=== PATIENT | female | born 1950 | race African-American/Black ===

== ENCOUNTER 2018-03-23 08:44 | Day surgery (SDC) | payer MEDICARE ==
--- OUTSIDE RECORDS SUMMARY | 2018-03-23 08:50 | XMS REPORT ---
:1950 Author Organization [employer] Care Team Providers Name Role Phone Kirk, Na Provider Role Unavailable Allergies, Adverse Reactions, Alerts Substance Reaction Event Type Amoxicillin Info Not Available Drug Allergy Problems Problem Type Condition Code Onset Dates Condition Status Problem Depression with anxiety F41.8 Active Problem Aortic valve stenosis I35.0 Active Problem Allergic rhinitis, seasonal J30.2 Active Assessment Depression with anxiety F41.8 Active Problem COPD (chronic obstructive pulmonary J44.9 Active disease) Problem Anxiety F41.9 Active Problem Hyperlipidemia E78.5 Active Problem GERD (gastroesophageal reflux K21.9 Active disease) Problem Constipation K59.00 Active Problem Benign essential HTN I10 Active Problem Vitamin D deficiency E55.9 Active Medications Medication Code Code Instructions Start End Status Dosage System Date Date Incruse Ellipta [facility] 88528649672 62.5 MCG/INH Active 1 puff Inhalation Once a day Alendronate Sodium [facility] 87420382696 35 MG Orally Active 1 tablet ProAir HFA [facility] 96333076129 108 (90 Base) Active 2 puffs as MCG/ACT needed Inhalation every 6 hrs Vitamin D3 [facility] 13568134381 1000 UNIT Active 1 tablet Orally Once a day Cyclobenzaprine [facility] 58803285716 10 MG Orally Active 1 tablet HCl Three times a as needed day Alprazolam ND 72017279401 0.5 MG Orally Active 1 tablet Twice a day ProAir RespiClick [facility] 09324969214 108 (90 Base) Active 2 puffs as MCG/ACT needed Inhalation every 4 hrs Pepcid [facility] 97726479061 20 MG Orally Active 1 tablet Once a day at bedtime Aspir-81 [facility] 39581424059 81 MG Orally Active 1 tablet Once a day Lipitor [facility] 65456197081 10 MG Orally Active 1 tablet Once a day Xanax ND 45921061251 0.5 MG Orally Active 1 tablet Twice a day Tessalon Perles [facility] 85504477470 100 MG Orally Active 1 capsule Three times a as needed day Coreg [facility] 69661675132 6.25 MG Orally February 27, Active as Twice a day 2018 directed Losartan Potassium [facility] 06844414218 100 MG Orally Active 1 tablet Once a day Amlodipine [facility] 98166136043 10 MG Orally Active 1 tablet Besylate Once a day Results No Known Results Summary Purpose eClinicalWorks Submission
--- OUTSIDE RECORDS SUMMARY | 2018-03-23 08:50 | XMS REPORT ---
:1950 Author Organization [employer] Care Team Providers Name Role Phone Kirk, Na Provider Role Unavailable Allergies, Adverse Reactions, Alerts Substance Reaction Event Type Amoxicillin Info Not Available Drug Allergy Problems Problem Type Condition Code Onset Dates Condition Status Problem Depression with anxiety F41.8 Active Problem Aortic valve stenosis I35.0 Active Problem Allergic rhinitis, seasonal J30.2 Active Problem COPD (chronic obstructive pulmonary J44.9 Active disease) Problem Anxiety F41.9 Active Problem Hyperlipidemia E78.5 Active Problem GERD (gastroesophageal reflux K21.9 Active disease) Problem Constipation K59.00 Active Problem Benign essential HTN I10 Active Problem Vitamin D deficiency E55.9 Active Assessment Benign essential HTN I10 Active Assessment Depression with anxiety F41.8 Active Assessment Cough R05 Active Assessment Hyperlipidemia E78.5 Active Assessment Acute non-recurrent sinusitis, J01.90 Active unspecified location Medications Medication Code Code Instructions Start End Status Dosage System Date Date Azithromycin [facility] 06660682048 250 MG Orally December Active 2 tablets Once a day 13, 18, on the 2017 2017 first day, then 1 tablet daily for 4 days Vitamin D3 [facility] 87868859474 1000 UNIT Active 1 tablet Orally Once a day Tessalon Perles [facility] 12211946620 100 MG Orally Active 1 capsule Three times a as needed day Amlodipine [facility] 12253381546 10 MG Orally Active 1 tablet Besylate Once a day Incruse Ellipta [facility] 60838173299 62.5 MCG/INH Active 1 puff Inhalation Once a day Aspir-81 [facility] 27038212246 81 MG Orally Active 1 tablet Once a day ProAir HFA [facility] 97521933706 108 (90 Base) Active 2 puffs MCG/ACT as needed Inhalation every 6 hrs ProAir RespiClick [facility] [address]-53 108 (90 Base) Active 2 puffs MCG/ACT as needed Inhalation every 4 hrs Pepcid [facility] 31667734649 20 MG Orally Active 1 tablet Once a day at bedtime Coreg [facility] 57566962194 12.5 MG Orally Active not defined Alprazolam [facility] 30737649403 0.5 MG Orally Nov 04, Active 1 tablet Twice a day 2017 Cozaar [facility] 63925612612 50 MG Orally Active 1 tablet Once a day Cyclobenzaprine [facility] 04966701503 10 MG Orally Active 1 tablet HCl Three times a as needed day Xanax [facility] 18658753023 0.5 MG Orally Active 1 tablet Twice a day Alendronate Sodium [facility] 39886042806 35 MG Orally Active 1 tablet Lipitor [facility] 61941631120 10 MG Orally Active 1 tablet Once a day Results No Known Results Summary Purpose eClinicalWorks Submission
--- OUTSIDE RECORDS SUMMARY | 2018-03-23 08:50 | XMS REPORT ---
:1950 Author Organization [employer]Works Care Team Providers Name Role Phone Kirk, Na Provider Role Unavailable Allergies No Known Allergies Problems Problem Type Condition Code Onset Dates [...] Problem Vitamin D deficiency E55.9 Active Medications No Known Medications Results No Known Results Summary Purpose eClinicalWorks Submission
--- OUTSIDE RECORDS SUMMARY | 2018-03-23 08:50 | XMS REPORT ---
[...] Medications Medication Code Code Instructions Start End Date Status Dosage System Date Coreg [facility] 08055174252 6.25 MG Orally February 27, Active as directed Twice a day 2017 Results No Known Results Summary Purpose eClinicalWorks Submission
[2018-03-23] MEDS ORDERED: BALANCED SALT IRRIG PLAIN 500 ML BTL IRR ONE (09:10)
[2018-03-23] MEDS ORDERED: EPINEPHRINE/PF 1 MG/ML AMP ONE (09:10)
[2018-03-23] MEDS ORDERED: NS 0.9% VIAL 10 ML ONE (09:10)
[2018-03-23] MEDS ORDERED: DUOVISC 1 KIT OPTH ONE (09:11)
[2018-03-23] MEDS ORDERED: MOXIFLOXACIN HCL 10 DROPS/ML **OR USE OPTH ONE (09:11)
[2018-03-23] MEDS ORDERED: BUPIVACAINE 0.25% PF 30 ML VIAL ONE (09:23)
[2018-03-23] MEDS ORDERED: NA CHLORIDE 0.9% 500 ML ONE (09:23)
[2018-03-23] MEDS ORDERED: TETRACAINE HCL 0.5% 2ML OPTH ONE (09:24)
[2018-03-23] MEDS ORDERED: LIDOCAINE 2% MPF 5 ML VIAL ONE ×2 (09:24→10:27)
[2018-03-23] MEDS: CYCLOPENTOLATE 1% OPTH 2 ML ONE ×3 (09:33→09:43)
[2018-03-23] MEDS: PHENYLEPHRINE 10% OPTH 5ML ONE ×3 (09:33→09:43)
[2018-03-23] MEDS ORDERED: PROPOFOL 200 MG/20 ML VIAL IV ONE (10:27)
[2018-03-23] MEDS ORDERED: GLYCOPYRROLATE 0.2 MG/ML SYR ONE ×2 (10:40)
--- NOTE | 2018-03-23 11:24 | P.BOP ---
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
--- NOTE | 2018-03-23 22:03 | OP ---
Date of Procedure: 03/23/2018 Surgeon: Mayra Harman MD Anesthesiologist: 1. Siobhan Harley CRNA. 2. Corey Harrison M.D. Preoperative Diagnosis: Nuclear sclerotic and cortical cataract and narrow angle, OS (left eye). Operation Performed: Phacoemulsification with intraocular lens implant, OS (left eye). Anesthesia: Per cataract surgery. Complications: None. Description Of Procedure: In day surgery, the patient was prepped with Betadine and draped. A conju nctival incision was made in the inferior nasal quadrant with Steve scissors. A sub-Tenon block c onsisting of a 1:1 mixture of 2% Xylocaine and 0.25% bupivacaine was placed through the conjunctival incision with a blunt cannula. A Honan balloon was placed over the eye and the patient was transferr ed to the operating room. In the operating room the patient was prepped and draped in the usual sterile fashion for ophthalmic surgery. A lid speculum was placed in the OS. Two paracentesis sites were made superiorly and infer iorly in the limbal cornea. Viscoat was placed in the anterior chamber and a crescent blade was used to make a corneal groove and tunnel, and a keratome was used to enter the anterior chamber. Provisc was placed in the anterior chamber and a 360 degree capsulotomy was performed with a cystitome. The lens was hydrodissected with BSS and rotated freely. The lens was removed with a stop and chop tech nique. A 3.15 phaco CDE was used to remove the lens. Residual cortex was removed with the irrigatio n and aspiration. Provisc was placed in the capsular bag. A ZCB00 +22.0 diopter lens was placed in the capsular bag without complications. Irrigation and aspiration was used to remove residual viscoe lastic. The paracentesis sites were hydrated with BSS. The wound and paracentesis sites were inspec jarvis and found to be watertight. Vigamox 0.07 cc was placed intracamerally at the end of the procedur e. The eye was irrigated with balanced salt solution. The eye was patched with a soft cotton patch and Jackson metal shield. The patient was returned to day surgery in good condition. Comments: Discharge Instructions: Ms. Keyes is discharged to home in good condition. She is to follow up with Dr. Harman today at 4 p.m. and then in the morning. DAYTON/PÉREZ Voice ID: [id number] Report ID: [id number]
== END 2018-03-23 11:55 | disposition home or self-care (01) ==
LOC: OR 08:44
PROVIDERS: ATTEND Ophthalmology Retina Specialist
PROC: 08RK3JZ Replacement of Left Lens with Synthetic Substitute, Percutaneous Approach (ICD-10-PCS; principal; 2018-03-23 10:00)
DX: H25.12 Age-related nuclear cataract, left eye (principal); H25.012 Cortical age-related cataract, left eye; H40.053 Ocular hypertension, bilateral; H43.811 Vitreous degeneration, right eye; I10 Essential (primary) hypertension; J44.9 Chronic obstructive pulmonary disease, unspecified; E78.00 Pure hypercholesterolemia, unspecified; M81.0 Age-related osteoporosis without current pathological fracture; K21.9 Gastro-esophageal reflux disease without esophagitis; Z72.0 Tobacco use; Z95.2 Presence of prosthetic heart valve; Z88.0 Allergy status to penicillin; Z83.511 Family history of glaucoma; Z83.3 Family history of diabetes mellitus; Z82.49 Family history of ischemic heart disease and other diseases of the circulatory system
CPT/HCPCS: 66984; J0171

== ENCOUNTER 2019-02-22 07:47 | Day surgery (SDC) | payer MEDICARE, OTHER ==
--- OUTSIDE RECORDS SUMMARY | 2019-02-22 07:51 | XMS REPORT ---
:1950 Author Organization [employer]ClinicalWorks Care Team Providers Name Role Phone Kirk, Na Provider Role Unavailable Allergies, Adverse Reactions, Alerts Substance Reaction Event Type Amoxicillin Info Not Available Drug Allergy Problems Problem Type Condition Code Onset Dates Condition Status Problem Aortic valve stenosis I35.0 Active Problem GERD (gastroesophageal reflux K21.9 Active disease) Problem Constipation K59.00 Active Assessment Acute sinusitis J01.90 Active Problem Depression with anxiety F41.8 Active Problem Allergic rhinitis, seasonal J30.2 Active Problem Hyperlipidemia E78.5 Active Problem Osteoporosis, unspecified M81.0 Active osteoporosis type, unspecified pathological fracture presence Problem Benign essential HTN I10 Active Problem Vitamin D deficiency E55.9 Active Problem COPD (chronic obstructive pulmonary J44.9 Active disease) Problem Anxiety F41.9 Active Medications Medication Code Code Instructions Start End Status Dosage System Date Date Alendronate Sodium [facility] 46107442535 35 MG Orally Feb Active 1 tablet once a week 2018 Incruse Ellipta [facility] 31554739163 62.5 MCG/INH Feb Active 1 puff Inhalation Once 18, a day 2018 Xanax [facility] 21666599016 0.5 MG Orally Active 1 tablet Twice a day Pepcid [facility] 47059727107 20 MG Orally Active 1 tablet Once a day at bedtime Atorvastatin [facility] 11913113163 10 MG Active TAKE ONE Calcium TABLET BY MOUTH ONCE DAILY ProAir HFA [facility] 43076242137 108 (90 Base) Active 2 puffs as MCG/ACT needed Inhalation every 6 hrs Tessalon Perles [facility] 59686540592 100 MG Orally Active 1 capsule Three times a as needed day ProAir RespiClick [facility] 56919308050 108 (90 Base) Active 2 puffs as MCG/ACT needed Inhalation every 4 hrs Aspir-81 [facility] 66866944089 81 MG Orally Active 1 tablet Once a day Bactrim DS [facility] 66189340191 800-160 MG Jun 09, Active 1 tablet Orally Twice a 2017 day Lipitor [facility] 30640755561 10 MG Orally Active 1 tablet Once a day Losartan Potassium [facility] 90064345820 100 MG Orally Active 1 tablet Once a day Cyclobenzaprine [facility] 52273126304 10 MG Orally Active 1 tablet HCl Three times a as needed day Alprazolam [facility] 97750522120 0.5 MG Orally Active 1 tablet Twice a day Amlodipine [facility] 69667267518 10 MG Active TAKE ONE Besylate TABLET BY MOUTH ONCE DAILY Coreg [facility] 09188310580 6.25 MG Orally February 27, Active as Twice a day 2018 directed Vitamin D3 [facility] 07486124538 1000 UNIT Active 1 tablet Orally Once a day Results No Known Results Summary Purpose eClinicalWorks Submission
--- OUTSIDE RECORDS SUMMARY | 2019-02-22 07:51 | XMS REPORT ---
[...] Problem Vitamin D deficiency E55.9 Active Assessment Senile cataract, unspecified H25.9 Active age-related cataract type, unspecified laterality Assessment Benign essential HTN I10 Active Assessment Depression with anxiety F41.8 Active Medications Medication Code System Code Instructions Start Date End Date Status Dosage Cozaar NDC 0 Active not defined Results No Known Results Summary Purpose eClinicalWorks Submission
--- OUTSIDE RECORDS SUMMARY | 2019-02-22 07:51 | XMS REPORT ---
:1950 Author Organization [employer]ClinicalWorks Care Team Providers Name Role Phone Kirk, Na Provider Role Unavailable Allergies, Adverse Reactions, Alerts Substance Reaction Event Type Amoxicillin Info Not Available Drug Allergy Problems Problem Type Condition Code Onset Dates Condition Status Problem Aortic valve stenosis I35.0 Active Problem GERD (gastroesophageal reflux K21.9 Active disease) Problem Constipation K59.00 Active Problem Allergic rhinitis, seasonal J30.2 Active Problem Hyperlipidemia E78.5 Active Problem Osteoporosis, unspecified M81.0 Active osteoporosis type, unspecified pathological fracture presence Problem Benign essential HTN I10 Active Problem Vitamin D deficiency E55.9 Active Problem COPD (chronic obstructive pulmonary J44.9 Active disease) Problem Anxiety F41.9 Active Assessment COPD (chronic obstructive pulmonary J44.9 Active disease) Assessment Depression with anxiety F41.8 Active Assessment Screening for osteoporosis Z13.820 Active Assessment Osteoporosis, unspecified M81.0 Active osteoporosis type, unspecified pathological fracture presence Assessment Hyperlipidemia E78.5 Active Assessment Benign essential HTN I10 Active Assessment Vitamin D deficiency E55.9 Active Assessment Senile cataract, unspecified H25.9 Active age-related cataract type, unspecified laterality Problem Depression with anxiety F41.8 Active Medications Medication Code Code Instructions Start End Status Dosage System Date Date Alprazolam [facility] 10766659078 0.5 MG Orally Active 1 tablet Twice a day Vitamin D3 [facility] 61860222779 1000 UNIT Active 1 tablet Orally Once a day ProAir RespiClick [facility] 20161316957 108 (90 Base) Active 2 puffs as MCG/ACT needed Inhalation every 4 hrs - [facility] 08727770780 81 MG Orally Active 1 tablet Once a day Xanax ND 79117270763 0.5 MG Orally Active 1 tablet Twice a day Coreg [facility] 30042364247 6.25 MG Orally February 27, Active as Twice a day 2018 directed Lipitor [facility] 82748502645 10 MG Orally Active 1 tablet Once a day Tessalon Perles [facility] 80360563899 100 MG Orally Active 1 capsule Three times a as needed day Alendronate Sodium [facility] 89918833508 35 MG Orally Feb Active 1 tablet once a week 2018 Cyclobenzaprine [facility] 39110960937 10 MG Orally Active 1 tablet HCl Three times a as needed day Amlodipine [facility] 79791832255 10 MG Active TAKE ONE Besylate TABLET BY MOUTH ONCE DAILY Pepcid [facility] 14558697734 20 MG Orally Active 1 tablet Once a day at bedtime Atorvastatin [facility] 66855099383 10 MG Active TAKE ONE Calcium TABLET BY MOUTH ONCE DAILY ProAir HFA [facility] 73717683742 108 (90 Base) Active 2 puffs as MCG/ACT needed Inhalation every 6 hrs Incruse Ellipta [facility] 39698247446 62.5 MCG/INH Feb Active 1 puff Inhalation Once 18, a day 2018 Losartan Potassium [facility] 12961146876 100 MG Orally Active 1 tablet Once a day Results No Known Results Summary Purpose eClinicalWorks Submission
--- OUTSIDE RECORDS SUMMARY | 2019-02-22 07:51 | XMS REPORT ---
[...] Status Dosage System Date Date Incruse Ellipta [facility] 70544372580 62.5 MCG/INH Active 1 puff Inhalation Once a day Alendronate Sodium [facility] 25876995080 35 MG Orally Active 1 tablet ProAir HFA [facility] 57035552649 108 (90 Base) Active 2 puffs as MCG/ACT needed Inhalation every 6 hrs Vitamin D3 [facility] 43081136264 1000 UNIT Active 1 tablet Orally Once a day Cyclobenzaprine [facility] 44196790733 10 MG Orally Active 1 tablet HCl Three times a as needed day Alprazolam ND 54281311797 0.5 MG Orally Active 1 tablet Twice a day ProAir RespiClick [facility] 06407888929 108 (90 Base) Active 2 puffs as MCG/ACT needed Inhalation every 4 hrs Pepcid [facility] 02438951307 20 MG Orally Active 1 tablet Once a day at bedtime Aspir-81 [facility] 97021883758 81 MG Orally Active 1 tablet Once a day Lipitor [facility] 96093360562 10 MG Orally Active 1 tablet Once a day Xanax ND 20690135701 0.5 MG Orally Active 1 tablet Twice a day Tessalon Perles [facility] 89735079442 100 MG Orally Active 1 capsule Three times a as needed day Coreg [facility] 92994511374 6.25 MG Orally February 27, Active as Twice a day 2018 directed Losartan Potassium [facility] 47253194379 100 MG Orally Active 1 tablet Once a day Amlodipine [facility] 42369636823 10 MG Orally Active 1 tablet Besylate Once a day Results No Known Results Summary Purpose eClinicalWorks Submission
--- OUTSIDE RECORDS SUMMARY | 2019-02-22 07:51 | XMS REPORT ---
:1950 Author Organization eClinicalWorks Care Team Providers Name Role Phone Kirk, Na Provider Role Unavailable Allergies, Adverse Reactions, Alerts Substance Reaction Event Type Amoxicillin Info Not Available Drug Allergy Problems Problem Type Condition Code Onset Dates Condition Status Problem Aortic valve stenosis I35.0 Active Problem GERD (gastroesophageal reflux K21.9 Active disease) Problem Constipation K59.00 Active Assessment Depression with anxiety F41.8 Active Problem Depression with anxiety F41.8 Active [...] Start End Status Dosage System Date Date Bactrim DS [facility] 81348206793 800-160 MG Jun 09, Active 1 tablet Orally Twice a 2017 day Pepcid [facility] 09070364715 20 MG Orally Active 1 tablet Once a day at bedtime Coreg [facility] 85112332017 6.25 MG Orally February 27, Active as Twice a day 2018 directed ProAir RespiClick [facility] 44966649933 108 (90 Base) Active 2 puffs as MCG/ACT needed Inhalation every 4 hrs Lipitor [facility] 27361275986 10 MG Orally Active 1 tablet Once a day Alprazolam [facility] 06061539042 0.5 MG Orally Active 1 tablet Twice a day Amlodipine [facility] 08203677413 10 MG Active TAKE ONE Besylate TABLET BY MOUTH ONCE DAILY Losartan Potassium [facility] 02445246731 100 MG Orally Active 1 tablet Once a day Tessalon Perles [facility] 98686328827 100 MG Orally Active 1 capsule Three times a as needed day Cyclobenzaprine [facility] 61036978074 10 MG Orally Active 1 tablet HCl Three times a as needed day Alendronate Sodium [facility] 98673036525 35 MG Orally Feb Active 1 tablet once a week 2018 Incruse Ellipta [facility] 15012662975 62.5 MCG/INH Feb Active 1 puff Inhalation Once 18, a day 2018 Xanax [facility] 15700586152 0.5 MG Orally Active 1 tablet Twice a day ProAir HFA [facility] 57845635885 108 (90 Base) Active 2 puffs as MCG/ACT needed Inhalation every 6 hrs Vitamin D3 [facility] 24439510022 1000 UNIT Active 1 tablet Orally Once a day Aspir-81 [facility] 50509594877 81 MG Orally Active 1 tablet Once a day Atorvastatin [facility] 67916456861 10 MG Active TAKE ONE Calcium TABLET BY MOUTH ONCE DAILY Results No Known Results Summary Purpose eClinicalWorks Submission
--- OUTSIDE RECORDS SUMMARY | 2019-02-22 07:51 | XMS REPORT ---
[...] Start End Status Dosage System Date Date ProAir HFA [facility] 27386534840 108 (90 Base) Active 2 puffs as MCG/ACT needed Inhalation every 6 hrs Aspir-[address] [facility] 94953393896 81 MG Orally Active 1 tablet Once a day Coreg ND 91524485332 6.25 MG Orally February 27, Active as Twice a day 2018 directed Incruse Ellipta [facility] 35832860113 62.5 MCG/INH Active 1 puff Inhalation Once a day Alprazolam ND 78396279313 0.5 MG Orally Active 1 tablet Twice a day Lipitor [facility] 99218897910 10 MG Orally Active 1 tablet Once a day Amlodipine [facility] 11702832518 10 MG Active TAKE ONE Besylate TABLET BY MOUTH ONCE DAILY Xanax [facility] 93494056128 0.5 MG Orally Active 1 tablet Twice a day Cyclobenzaprine [facility] 33499123485 10 MG Orally Active 1 tablet HCl Three times a as needed day Tessalon Perles [facility] 14181236880 100 MG Orally Active 1 capsule Three times a as needed day Alendronate Sodium [facility] 31761252215 35 MG Orally Active 1 tablet ProAir RespiClick [facility] 74698984572 108 (90 Base) Active 2 puffs as MCG/ACT needed Inhalation every 4 hrs Atorvastatin [facility] 90319471163 10 MG Active TAKE ONE Calcium TABLET BY MOUTH ONCE DAILY Pepcid [facility] 43367928105 20 MG Orally Active 1 tablet Once a day at bedtime Vitamin D3 [facility] 08041084251 1000 UNIT Active 1 tablet Orally Once a day Losartan Potassium [facility] 32373769446 100 MG Orally Active 1 tablet Once a day Results No Known Results Summary Purpose eClinicalWorks Submission
--- OUTSIDE RECORDS SUMMARY | 2019-02-22 07:51 | XMS REPORT ---
:1950 [facility] Address [address] [place] [address] [address] [place] [address] Care Team Providers Name Role Phone Unavailable Unavailable Unavailable Problems This patient has no known problems. Allergies, Adverse Reactions, Alerts This patient has no known allergies or adverse reactions. Medications This patient has no known medications.
--- OUTSIDE RECORDS SUMMARY | 2019-02-22 07:51 | XMS REPORT ---
:1950 Author Organization eClinicalWorks Care Team Providers Name Role Phone Krik, Na Provider Role Unavailable Allergies No Known [...] End Date Status Dosage System Date Coreg [facility] 05664739322 6.25 MG Orally February 27, Active as directed Twice a day 2017 Results No Known Results Summary Purpose eClinicalWorks Submission
--- OUTSIDE RECORDS SUMMARY | 2019-02-22 07:52 | XMS REPORT ---
:1950 Author Organization eClinicalWorks Care Team Providers Name Role Phone Kirk, Na Provider Role Unavailable Allergies No Known Allergies Problems Problem Type Condition Code Onset Dates Condition Status Problem Benign essential HTN I10 Active Problem COPD (chronic obstructive pulmonary J44.9 Active disease) Problem Anxiety F41.9 Active Problem Acute left-sided low back pain M54.5 Active without sciatica Problem Effusion of left ankle M25.472 Active Problem Pain in left ankle and joints of M25.572 Active left foot Problem Allergic rhinitis, seasonal J30.2 Active Problem Hyperlipidemia E78.5 Active Problem 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
--- OUTSIDE RECORDS SUMMARY | 2019-02-22 07:52 | XMS REPORT ---
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 Problem Anxiety F41.9 Active Problem Benign essential HTN I10 Active Problem Hyperlipidemia E78.5 Active Problem COPD (chronic obstructive pulmonary J44.9 Active disease) Assessment COPD (chronic obstructive pulmonary J44.9 Active disease) Assessment Depression with anxiety F41.8 Active Assessment Osteoporosis, unspecified M81.0 Active osteoporosis type, unspecified pathological fracture presence Assessment Vitamin D deficiency E55.9 Active Assessment Benign essential HTN I10 Active Assessment Hyperlipidemia E78.5 Active Problem Depression with anxiety F41.8 Active Assessment 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 Problem Aortic valve stenosis I35.0 Active Medications Medication Code Code Instructions Start End Status Dosage System Date Date Sujatha Garces [facility] 32777351686 100 MG Orally Active 1 capsule Three times a as needed day Xanax [facility] 05686850205 0.5 MG Orally Active 1 tablet Twice a day Diclofenac Sodium [facility] 83617893590 1 % Aug 18, Active as Transdermal 2017 directed twice a day as needed for pain Amlodipine [facility] 37561005811 10 MG Active TAKE ONE Besylate TABLET BY MOUTH ONCE DAILY Incruse Ellipta [facility] 52247049107 62.5 MCG/INH Active 1 puff Inhalation Once a day ProAir HFA [facility] 75864530122 108 (90 Base) Active 2 puffs as MCG/ACT needed Inhalation every 6 hrs Alendronate Sodium [facility] 22863913401 35 MG Orally Nov Inactive 1 tablet once a week 2017 Atorvastatin [facility] 39264109686 10 MG Active TAKE ONE Calcium TABLET BY MOUTH ONCE DAILY Vitamin D3 [facility] 37447519234 1000 UNIT Active 1 tablet Orally Once a day Alprazolam [facility] 86978090411 0.5 MG Orally Active 1 tablet Twice a day Bactrim DS [facility] 29844390173 800-160 MG Sept Active 1 tablet Orally Twice a 182017 Pepcid [facility] 59082487105 20 MG Orally Active 1 tablet Once a day at bedtime Aspir-81 [facility] 25502552223 81 MG Orally Active 1 tablet Once a day Lipitor [facility] 58430073712 10 MG Orally Active 1 tablet Once a day Coreg [facility] 73099789396 6.25 MG Orally Active as Twice a day directed ProAir RespiClick [facility] 37997827357 108 (90 Base) Active 2 puffs as MCG/ACT needed Inhalation every 4 hrs Cyclobenzaprine [facility] 99164723561 10 MG Orally Active 1 tablet HCl Three times a as needed day Losartan Potassium [facility] 89235151844 100 MG Orally Active 1 tablet Once a day Results No Known Results Summary Purpose eClinicalWorks Submission
--- OUTSIDE RECORDS SUMMARY | 2019-02-22 07:52 | XMS REPORT ---
:1950 Author Organization eClinicalWorks Care Team Providers Name Role Phone Kirk, Na Provider Role Unavailable Allergies No Known Allergies Problems Problem Type Condition Code Onset Dates Condition Status Problem Constipation K59.00 Active Problem Vitamin D deficiency E55.9 Active Problem GERD (gastroesophageal reflux K21.9 Active disease) Assessment Depression with anxiety F41.8 Active Problem Depression with anxiety F41.8 Active Problem Aortic valve stenosis I35.0 Active Problem Osteoporosis, unspecified M81.0 Active osteoporosis type, unspecified pathological fracture presence Problem Allergic rhinitis, seasonal J30.2 Active Problem 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 Problem Anxiety F41.9 Active Problem Benign essential HTN I10 Active Problem Hyperlipidemia E78.5 Active Problem COPD (chronic obstructive pulmonary J44.9 Active disease) Medications Medication Code Code Instructions Start End Status Dosage System Date Date Losartan Potassium [facility] 41982099425 100 MG Orally Active 1 tablet Once a day Lipitor [facility] 83345514970 10 MG Orally Active 1 tablet Once a day Vitamin D3 [facility] 19781869366 1000 UNIT Active 1 tablet Orally Once a day Atorvastatin [facility] 21427306851 10 MG Active TAKE ONE Calcium TABLET BY MOUTH ONCE DAILY Pepcid [facility] 38832783625 20 MG Orally Active 1 tablet Once a day at bedtime ProAir RespiClick [facility] 47740755351 108 (90 Base) Active 2 puffs as MCG/ACT needed Inhalation every 4 hrs Aspir-81 [facility] 47504557212 81 MG Orally Active 1 tablet Once a day Xanax [facility] 99216908270 0.5 MG Orally Active 1 tablet Twice a day Amlodipine [facility] 72758535053 10 MG Active TAKE ONE Besylate TABLET BY MOUTH ONCE DAILY Coreg [facility] 10505055872 6.25 MG Orally Active as Twice a day directed Incruse Ellipta [facility] 46095240158 62.5 MCG/INH Active 1 puff Inhalation Once a day Diclofenac Sodium [facility] 34095940242 1 % Transdermal Aug 18, Active as twice a day as 2018 directed needed for pain Bactrim DS [facility] 00183381727 800-160 MG Jun 09, Active 1 tablet Orally Twice a 2018 day Tessalon Dez [facility] 05287872451 100 MG Orally Active 1 capsule Three times a as needed day Cyclobenzaprine [facility] 88908331562 10 MG Orally Active 1 tablet HCl Three times a as needed day Alprazolam [facility] 06293078950 0.5 MG Orally Active 1 tablet Twice a day PRN anxiety ProAir HFA [facility] 83886494962 108 (90 Base) Active 2 puffs as MCG/ACT needed Inhalation every 6 hrs Results No Known Results Summary Purpose eClinicalWorks Submission
--- OUTSIDE RECORDS SUMMARY | 2019-02-22 07:52 | XMS REPORT ---
[...] osteoporosis type, unspecified pathological fracture presence Assessment Anxiety F41.9 Active Problem Aortic valve stenosis I35.0 Active Problem Constipation K59.00 Active Problem GERD (gastroesophageal reflux K21.9 Active disease) Problem Depression with anxiety F41.8 Active Problem Vitamin D deficiency E55.9 Active Medications Medication Code Code Instructions Start End Status Dosage System Date Date Coreg [facility] 78983841364 6.25 MG Orally Active as Twice a day directed Amlodipine [facility]] 56460432357 10 MG Active TAKE ONE Besylate TABLET BY MOUTH ONCE DAILY Pepcid [facility]] 25124968397 20 MG Orally Active 1 tablet Once a day at bedtime Vitamin D3 [facility]] 95415171473 1000 UNIT Active 1 tablet Orally Once a day Tessalon Perles [facility] 2] 53699205571 100 MG Orally Active 1 capsule Three times a as needed day Incruse Ellipta [facility] 2[facility] 68367523610 62.5 MCG/INH Active 1 puff Inhalation Once a day Losartan Potassium [facility]] 14985374267 100 MG Orally Active 1 tablet Once a day Alprazolam [facility]] 00480998937 0.5 MG Orally Active 1 tablet Twice a day Diclofenac Sodium [facility]] 64535362967 1 % Transdermal Active as twice a day as directed needed for pain Aspir-81 [facility]] 76417862333 81 MG Orally Active 1 tablet Once a day ProAir HFA [facility] 25194276837 108 (90 Base) Active 2 puffs as MCG/ACT needed Inhalation every 4-6 hrs PRN Xanax [facility]] 63463384299 0.5 MG Orally Active 1 tablet Twice a day Cyclobenzaprine [facility]] 05453538944 10 MG Orally Active 1 tablet HCl Three times a as needed day Lipitor [facility] 2] 97012134612 10 MG Orally Active 1 tablet Once a day Results No Known Results Summary Purpose eClinicalWorks Submission
--- OUTSIDE RECORDS SUMMARY | 2019-02-22 07:52 | XMS REPORT ---
:1950 Author Organization eClinicalWorks Care Team Providers Name Role Phone Kirk, Na Provider Role Unavailable Allergies, Adverse Reactions, Alerts Substance Reaction Event Type Amoxicillin Info Not Available Drug Allergy Problems Problem Type Condition Code Onset Dates Condition Status Assessment Right hip pain M25.551 Active Assessment Osteoporosis, unspecified M81.0 Active osteoporosis type, unspecified pathological fracture presence Assessment COPD (chronic obstructive pulmonary J44.9 Active disease) Problem GERD (gastroesophageal reflux K21.9 Active disease) Assessment Vitamin D deficiency E55.9 Active Problem Vitamin D deficiency E55.9 Active Assessment Hyperlipidemia E78.5 Active Problem Benign essential HTN I10 Active Problem COPD (chronic obstructive pulmonary J44.9 Active disease) Problem Anxiety F41.9 Active Problem Acute left-sided low back pain M54.5 Active without sciatica Problem Effusion of left ankle M25.472 Active Assessment Effusion of left ankle M25.472 Active Assessment Pain in left ankle and joints of M25.572 Active left foot Problem Pain in left ankle and joints of M25.572 Active left foot Assessment History of recent fall Z91.81 Active Problem Allergic rhinitis, seasonal J30.2 Active Problem Hyperlipidemia E78.5 Active Problem 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 Problem Osteoporosis, unspecified M81.0 Active osteoporosis type, unspecified pathological fracture presence Assessment 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 Assessment Benign essential HTN I10 Active Assessment Acute left-sided low back pain M54.5 Active without sciatica Assessment Depression with anxiety F41.8 Active Problem Aortic valve stenosis I35.0 Active Problem Constipation K59.00 Active Problem Depression with anxiety F41.8 Active Medications Medication Code Code Instructions Start End Status Dosage System Date Date Atorvastatin [facility] 63440775870 10 MG Active TAKE ONE Calcium TABLET BY MOUTH ONCE DAILY Vitamin D3 [facility] 71012065862 1000 UNIT Active 1 tablet Orally Once a day Lipitor [place] 03252258392 10 MG Orally Active 1 tablet Once a day ProAir RespiClick [facility] 17685703353 108 (90 Base) Active 2 puffs as MCG/ACT needed Inhalation every 4 hrs Alprazolam [facility] 25424003271 0.5 MG Orally Active 1 tablet Twice a day Losartan Potassium [place] 67777371258 100 MG Orally Active 1 tablet Once a day Diclofenac Sodium [facility] 93654260034 1 % Transdermal Active as twice a day as directed needed for pain ProAir HFA [facility] 38219718640 108 (90 Base) Active 2 puffs as MCG/ACT needed Inhalation every 6 hrs Bactrim DS [facility] 74341723578 800-160 MG Jun 09, Active 1 tablet Orally Twice a 2017 day -81 [facility] 29822857257 81 MG Orally Active 1 tablet Once a day Tessalon Perles [facility] 02793803858 100 MG Orally Active 1 capsule Three times a as needed day Cyclobenzaprine [facility] 88864031460 10 MG Orally Active 1 tablet HCl Three times a as needed day Xanax [facility] 33100939566 0.5 MG Orally Active 1 tablet Twice a day Amlodipine [facility] 94150310379 10 MG Active TAKE ONE Besylate TABLET BY MOUTH ONCE DAILY Coreg [facility] 22991438395 6.25 MG Orally Active as Twice a day directed Incruse Ellipta [facility] 16247187818 62.5 MCG/INH Active 1 puff Inhalation Once a day Pepcid [facility] 87579192544 20 MG Orally Active 1 tablet Once a day at bedtime Results No Known Results Summary Purpose eClinicalWorks Submission
--- OUTSIDE RECORDS SUMMARY | 2019-02-22 07:52 | XMS REPORT ---
[...] Status Dosage System Date Date ProAir HFA [facility] 59022359942 108 (90 Base) Active 2 puffs as MCG/ACT needed Inhalation every 6 hrs Coreg [facility] 25646293907 6.25 MG Orally Active as Twice a day directed Alprazolam [facility] 34794654109 0.5 MG Orally Active 1 tablet Twice a day Diclofenac Sodium [facility] 43410620621 1 % Transdermal Aug 18, Active as twice a day as 2018 directed needed for pain Vitamin D3 ND 97718063492 1000 UNIT Active 1 tablet Orally Once a day ProAir RespiClick [facility] 11781159991 108 (90 Base) Active 2 puffs as MCG/ACT needed Inhalation every 4 hrs Aspir-81 [facility] 23688487360 81 MG Orally Active 1 tablet Once a day Tessalon Perles [facility] 56188700199 100 MG Orally Active 1 capsule Three times a as needed day Lipitor [facility] 64838891837 10 MG Orally Active 1 tablet Once a day Amlodipine [facility] 62460942654 10 MG Active TAKE ONE Besylate TABLET BY MOUTH ONCE DAILY Atorvastatin [facility] 93254877776 10 MG Active TAKE ONE Calcium TABLET BY MOUTH ONCE DAILY Bactrim DS [facility] 54342048623 800-160 MG Jun 09, Active 1 tablet Orally Twice a 2017 day Incruse Ellipta [facility] 14259979049 62.5 MCG/INH Active 1 puff Inhalation Once a day Xanax [facility] 96438585344 0.5 MG Orally Active 1 tablet Twice a day Pepcid [facility] 92734573889 20 MG Orally Active 1 tablet Once a day at bedtime Cyclobenzaprine [facility] 90780052798 10 MG Orally Active 1 tablet HCl Three times a as needed day Losartan Potassium [facility] 47780137638 100 MG Orally Active 1 tablet Once a day Results No Known Results Summary Purpose eClinicalWorks Submission
--- OUTSIDE RECORDS SUMMARY | 2019-02-22 07:52 | XMS REPORT ---
[...] osteoporosis type, unspecified pathological fracture presence Assessment Acute bronchitis, unspecified J20.9 Active organism Assessment Anxiety F41.9 Active Assessment COPD (chronic obstructive pulmonary J44.9 Active disease) Problem Aortic valve stenosis I35.0 Active Problem Constipation K59.00 Active Problem GERD (gastroesophageal reflux K21.9 Active disease) Problem Depression with anxiety F41.8 Active Problem Vitamin D deficiency E55.9 Active Medications Medication Code Code Instructions Start End Status Dosage System Date Date Pepcid [facility] 70372853467 20 MG Orally Active 1 tablet Once a day at bedtime Sujatha Garces [facility] 61190243185 100 MG Orally Active 1 capsule Three times a as needed day Coreg [facility] 11068007970 6.25 MG Orally Active as Twice a day directed ProAir HFA [facility] 87039986521 108 (90 Base) Active 2 puffs as MCG/ACT needed Inhalation every 4-6 hrs PRN Aspir-81 [facility] 94222386976 81 MG Orally Active 1 tablet Once a day Amlodipine [facility] 59533169871 10 MG Active TAKE ONE Besylate TABLET BY MOUTH ONCE DAILY Cyclobenzaprine [facility] 70376595785 10 MG Orally Active 1 tablet HCl Three times a as needed day Diclofenac Sodium [facility] 43388789297 1 % Transdermal Active as twice a day as directed needed for pain Bactrim DS [facility] 85241490718 800-160 MG Sept Active 1 tablet Orally Twice a 18, 2017 PredniSONE [place] 14936628198 10 MG Orally December Active 2 tablets Once a day for 03, 13, 5 days, then 2018 tablet once a day for 5 days Losartan Potassium [facility] 67496009506 100 MG Orally Active 1 tablet Once a day Vitamin D3 [facility] 68295507420 1000 UNIT Active 1 tablet Orally Once a day Atorvastatin [facility] 93267915945 10 MG Active TAKE ONE Calcium TABLET BY MOUTH ONCE DAILY Alprazolam [facility] 93803433195 0.5 MG Orally Active 1 tablet Twice a day Incruse Ellipta [facility] 56918193198 62.5 MCG/INH Active 1 puff Inhalation Once a day Xanax [facility] 27815788265 0.5 MG Orally Active 1 tablet Twice a day ProAir RespiClick [facility] 34640519709 108 (90 Base) Active 2 puffs as MCG/ACT needed Inhalation every 4 hrs Lipitor [facility] 73320377273 10 MG Orally Active 1 tablet Once a day Results Name Result Date Reference Range Unit Abnormality Flag Chest Pa And Lat (2 Views) Summary Purpose eClinicalWorks Submission
--- OUTSIDE RECORDS SUMMARY | 2019-02-22 07:53 | XMS REPORT ---
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
[2019-02-22] MEDS ORDERED: MOXIFLOXACIN HCL 10 DROPS/ML **OR USE OPTH ONE (08:21)
[2019-02-22] MEDS ORDERED: DUOVISC 1 KIT OPTH ONE (08:21)
[2019-02-22] MEDS ORDERED: NS 0.9% VIAL 10 ML ONE (08:21)
[2019-02-22] MEDS ORDERED: BALANCED SALT IRRIG PLAIN 500 ML BTL IRR ONE (08:21)
[2019-02-22] MEDS ORDERED: EPINEPHRINE/PF 1 MG/ML AMP ONE (08:21)
[2019-02-22] MEDS ORDERED: BUPIVACAINE 0.25% PF 10 ML VIAL ONE (08:47)
[2019-02-22] MEDS ORDERED: TETRACAINE HCL 0.5% 4ML OPTH ONE (08:47)
[2019-02-22] MEDS ORDERED: LIDOCAINE 2% MPF 5 ML VIAL ONE ×2 (08:47→09:27)
[2019-02-22] MEDS ORDERED: NA CHLORIDE 0.9% 500 ML ONE (08:48)
[2019-02-22] MEDS: PHENYLEPHRINE 10% OPTH 5ML ONE ×3 (08:50→09:00)
[2019-02-22] MEDS: CYCLOPENTOLATE 1% OPTH 2 ML ONE ×3 (08:50→09:00)
[2019-02-22] MEDS ORDERED: PROPOFOL 200 MG/20 ML VIAL IV ONE (09:27)
--- NOTE | 2019-02-22 10:39 | P.BOP ---
Preoperative diagnosis: Nuclear sclerotic, cortical and angle closure glaucoma OD Postoperative diagnosis: Same Primary procedure: Phacoemulsification with IOL OD Estimated blood loss: None Anesthesia: Local (Subtenon's infusion with anesthesia for cataract surgery) Complications: None Implants: ZCB00 +22.5 Transferred to: Other (Day surgery) Condition: Good
--- NOTE | 2019-02-22 22:57 | OP ---
Date of Procedure: 02/22/2019 Surgeon: Mayra Harman MD Anesthesiologist: Juliana Covarrubias CRNA and Corey Harrison MD. 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 Operation Performed: Phacoemulsification with intraocular lens implant, right eye. Anesthesia: Per cataract surgery. Complications: None. Description Of Procedure: In day surgery, the patient was prepped with Betadine and draped. A conju nctival incision was made in the inferior nasal quadrant with Steve scissors. A sub-Tenon block c onsisting of a 1:1 mixture of 2% Xylocaine and 0.25% bupivacaine was placed through the conjunctival incision with a blunt cannula. A Honan balloon was placed over the eye and the patient was transferr ed to the operating room. In the operating room the patient was prepped and draped in the usual sterile fashion for ophthalmic surgery. A lid speculum was placed in the right. Two paracentesis sites were made superiorly and in feriorly in the limbal cornea. Viscoat was placed in the anterior chamber and a crescent blade was u sed to make a corneal groove and tunnel, and a keratome was used to enter the anterior chamber. Prov isc was placed in the anterior chamber and a 360 degree capsulotomy was performed with a cystitome. The lens was hydrodissected with BSS and rotated freely. The lens was removed with a stop and chop t echnique. 3.39 phaco CDE was used to remove the lens. Residual cortex was removed with the irrigati on and aspiration. Provisc was placed in the capsular bag. A ZCB00 +22.5 Lens was placed in the cap sular bag without complications. Irrigation and aspiration were used to remove residual viscoelastic . The paracentesis sites were hydrated with BSS. The wound and paracentesis sites were inspected an d found to be watertight. Vigamox 0.07 cc was placed intracamerally at the end of the procedure. Th e eye was irrigated with balanced salt solution. The eye was patched with a soft cotton patch and Fo x metal shield. The patient was returned to day surgery in good condition. Comments: 1:5000 epinephrine was placed in the anterior chamber prior to Viscoat. Discharge Instructions: Ms. Keyes is discharged to home in good condition to follow up with Dr. Leid lein this afternoon and in the morning. JHL/PÉREZ Voice ID: [id number] Report ID: [id number]
== END 2019-02-22 11:12 | disposition home or self-care (01) ==
LOC: OR 07:47
PROVIDERS: ATTEND Ophthalmology Retina Specialist
PROC: 08RJ3JZ Replacement of Right Lens with Synthetic Substitute, Percutaneous Approach (ICD-10-PCS; principal; 2019-02-22 10:15)
DX: H25.11 Age-related nuclear cataract, right eye (principal); H25.011 Cortical age-related cataract, right eye; H40.20X0 Unspecified primary angle-closure glaucoma, stage unspecified; H40.053 Ocular hypertension, bilateral; I10 Essential (primary) hypertension; J44.9 Chronic obstructive pulmonary disease, unspecified; E78.00 Pure hypercholesterolemia, unspecified; K21.9 Gastro-esophageal reflux disease without esophagitis; M81.0 Age-related osteoporosis without current pathological fracture; F17.200 Nicotine dependence, unspecified, uncomplicated; Z95.2 Presence of prosthetic heart valve; Z79.82 Long term (current) use of aspirin; Z88.0 Allergy status to penicillin; Z83.511 Family history of glaucoma; Z83.3 Family history of diabetes mellitus; Z82.49 Family history of ischemic heart disease and other diseases of the circulatory system
CPT/HCPCS: 66984; J2704; J0171